=== PATIENT | female | born 1960 ===

== ENCOUNTER 2016-07-23 11:24 | Inpatient (IN) | payer MEDICARE, BC, MEDICAID ==
[2016-07-23 11:24] VITALS: BMI 23.8
[2016-07-23 14:05] LABS: BASO # 0.1 K/uL (0.0-0.2); BASO % 0.9 % (0.0-2.0); EOS # 0.2 K/uL (0.0-0.7); HEMATOCRIT 43.6 % (34.0-47.0); LYMPH # 2.1 K/uL (1.0-4.3); LYMPH % 17.9 % (20.0-40.0); MEAN CELL VOLUME 96.2 fL (81.0-99.0); MEAN CORPUSCULAR HEMOGLOBIN 30.9 pg (27.0-31.0); MEAN CORPUSCULAR HGB CONC 32.1 g/dL (33.0-37.0); MEAN PLATELET VOLUME 9.9 fL (7.2-11.7); MONO # 0.7 K/uL (0.0-0.8); MONO % 6.1 % (0.0-10.0); NRBC % 0.2 % (0.0-2.0); RED CELL DISTRIBUTION WIDTH 18.4 % (11.5-14.5); WHITE BLOOD COUNT 11.5 K/uL (4.8-10.8)
[2016-07-23 14:12] LABS: POTASSIUM 3.3 mmol/L (3.6-5.2)
[2016-07-23 14:14] LABS: ALB/GLOB RATIO 1.2 (1.0-2.1); BILIRUBIN,TOTAL 0.7 mg/dL (0.2-1.3); CALCIUM 9.1 mg/dl (8.6-10.4); TOTAL PROTEIN 7.9 g/dL (6.3-8.3)
--- NOTE | 2016-07-23 14:37 | C.PDOC ---
Time Seen by Provider: 07/23/16 12:19 Chief Complaint (Nursing): GI Problem History Per: Family () History/Exam Limitations: clinical condition, other (unable to speak) Onset/Duration Of Symptoms: Days Current Symptoms Are (Timing): Still Present Recent travel outside of the [place]: No Past Medical History Reviewed: Historical Data, Nursing Documentation, Vital Signs Vital Signs: Last Vital Signs Temp 98.4 F 07/23/16 11:41 Pulse 88 07/23/16 14:55 Resp 18 07/23/16 14:55 BP 151/90 H 07/23/16 14:55 Pulse Ox 78 L 07/23/16 16:52 - Medical History PMH: Anemia, Anxiety, Arthritis, Asthma, Back Problems, Bronchitis, COPD, CVA, Depression, Deep Vein Thrombosis, Gall Bladder Disease, HTN, Hypercholesterolemia, End Stage Renal Disease, Chronic Kidney Disease, Seizures , TIA Surgical History: Appendectomy, Back Surgery (Repair of herniated disc), Cholecystectomy, Endoscopy - [facility] Procedures AMPUTATION THROUGH FOOT (03/01/13) ANGIOPLASTY OF OTHER NON-CORONARY VESSEL(S) (03/01/13) BONE MARROW BIOPSY (05/08/13) CENTRAL VENOUS CATHETER PLACEMENT WITH GUIDANCE (03/01/13) CLOSED [ENDOSCOPIC] BIOPSY OF LARYNX (06/08/13) CONTINUOUS INVASIVE MECHANICAL VENTILATION =/>96 CONSEC HRS (03/01/13) ENTERAL INFUSION OF CONCENTRATED NUT. SUBSTANCES (07/17/13) ESOPHAGOGASTRODUODENOSCOPY [EGD] W/CLOSED BIOPSY (05/08/13) EXC LES SOFT TISSUE NEC (02/27/14) EXCIS LESION OF MUSCLE (02/27/14) FREE SKIN GRAFT NEC (02/27/14) HEMODIALYSIS (03/01/13) INFUSION OF VASOPRESSOR AGENT (03/01/13) INSERT ENDOTRACHEAL TUBE (03/01/13) INSERT INFUSION DEV IN R INT JUGULAR VEIN, PERC (01/29/15) INSERT RECTAL TUBE (03/01/13) INTRODUCE OF OTH THROMBOLYTIC INTO PERIPH ART, PERC APPROACH (11/08/15) LOWER LIMB ARTERY INCIS (03/01/13) NAIL REMOVAL (09/06/14) NONEXCIS DEBRID OF WOUND, INFECT, OR BURN (02/27/14) OTHER ENDOSCOPY OF SM INTEST (09/04/13) OTHER MYECTOMY (02/27/14) PACKED CELL TRANSFUSION (06/08/13) PARENTERAL INFUSION OF CONCENTRATED NUT. SUBSTANCE (03/01/13) PERCUTANEOUS [ENDOSCOPIC] GASTROSTOMY [PEG] (03/01/13) PERFORMANCE OF URINARY FILTRATION, MULTIPLE (01/29/15) PERFORMANCE OF URINARY FILTRATION, SINGLE (04/02/16) PLAIN RADIOGRAPHY OF DIALYSIS SHUNT USING L OSM CONTRAST (11/08/15) PROCEDURE ON SINGLE VESSEL (03/01/13) REMOV GASTROSTOMY TUBE (09/04/13) REMOV THOR THER DEV NEC (03/01/13) TETANUS TOXOID ADMINIST (09/06/14) ULTRASONOGRAPHY OF RIGHT JUGULAR VEINS, GUIDANCE (01/29/15) ULTRASOUND THERAPY OF PERIPHERAL VESSELS, SINGLE (11/08/15) VENOUS CATHETERIZATION FOR RENAL DIALYSIS (03/01/13) VENOUS CATHETERIZATION NEC (03/01/13) Family History: States: Unknown Family Hx - Social History Hx Tobacco Use: Yes Hx Alcohol Use: No Hx Substance Use: No - Immunization History Hx Tetanus Toxoid Vaccination: Yes Hx Influenza Vaccination: Yes Hx Pneumococcal Vaccination: Yes Review Of Systems Review Of Systems: ROS cannot be obtained secondary to pt's inabilty to answer questions. ED Course And Treatment - Laboratory Results Result Diagrams: 07/23/16 13:56 07/23/16 13:56 O2 Sat by Pulse Oximetry: 78
--- NOTE | 2016-07-23 15:28 | CT ---
PROCEDURE: CT HEAD WITHOUT CONTRAST. HISTORY: hallucinations COMPARISON: None available. TECHNIQUE: Axial computed tomography images were obtained through the head/brain without intravenous contrast. Radiation dose: Total exam DLP = 593.42 mGy-cm. This CT exam was performed using one or more of the following dose reduction techniques: Automated exposure control, adjustment of the mA and/or kV according to patient size, and/or use of iterative reconstruction technique. FINDINGS: HEMORRHAGE: No intracranial hemorrhage. BRAIN: Left frontotemporoparietal encephalomalacia unchanged from prior examination. Possible old infarct in the MCA territory. No evidence of acute infarct. No significant atrophy. No intracranial mass. VENTRICLES: Ex vacuo dilatation of body of left lateral ventricle secondary to left frontotemporoparietal encephalomalacia. Unchanged. CALVARIUM: Unremarkable. PARANASAL SINUSES: Chronic sphenoid sinusitis MASTOID AIR CELLS: , unchanged. OTHER FINDINGS: None. IMPRESSION: No intracranial mass, hemorrhage or evidence of acute infarct. 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
[2016-07-23 16:37] LABS: RBC URINE 2 /hpf (0-3); URINE BACTERIA MOD (<OCC); URINE BILIRUBIN NEGATIVE (NEGATIVE); URINE BLOOD 1+ (NEGATIVE); URINE COLOR Yellow (YELLOW); URINE GLUCOSE (UA) NORMAL (Normal); URINE KETONE TRACE mg/dL (NEGATIVE); URINE LEUKOCYTE ESTERASE 3+ Leu/uL (Negative); URINE PROTEIN 2+ mg/dL (NEGATIVE); URINE UROBILINOGEN NORMAL mg/dL (0.2-1.0); WBC URINE 2031 /hpf (0-5)
--- NOTE | 2016-07-23 16:52 | C.PDOC ---
History Of Present Illness 56 year old female with past medical history of end stage renal disease, s/p CVA who is unable to speak presents to emergency department brought by who states patient has not been eating for the past week. The states patient takes percocets daily for multiple pain but has ran out and is not eligible for refill until 08/05/16. reports patient has been hallucinating and having conversations on her own. Patient is due for dialysis today but wants evaluation done prior to dialysis. Denies fever, chills , chest pain and SOB. Time Seen by Provider: 07/23/16 12:19 Chief Complaint (Nursing): GI Problem History/Exam Limitations: clinical condition (unable to speak) Onset/Duration Of Symptoms: Days Current Symptoms Are (Timing): Still Present Past Medical History Reviewed: Historical Data, Nursing Documentation, Vital Signs Vital Signs: Last Vital Signs Temp 98.4 F 07/23/16 11:41 Pulse 94 H 07/23/16 17:41 Resp 1 L 07/23/16 17:41 BP 145/88 07/23/16 17:41 Pulse Ox 78 L 07/23/16 18:25 - Medical History PMH: Anemia, Anxiety, Arthritis, Asthma, Back Problems, Bronchitis, COPD, CVA, Depression, Deep Vein Thrombosis, Gall Bladder Disease, HTN, Hypercholesterolemia, End Stage Renal Disease, Chronic Kidney Disease, Seizures , TIA Surgical History: Appendectomy, Back Surgery (Repair of herniated disc), Cholecystectomy, Endoscopy - [facility] Procedures AMPUTATION THROUGH FOOT (03/01/13) ANGIOPLASTY OF OTHER NON-CORONARY VESSEL(S) (03/01/13) BONE MARROW BIOPSY (05/08/13) CENTRAL VENOUS CATHETER PLACEMENT WITH GUIDANCE (03/01/13) CLOSED [ENDOSCOPIC] BIOPSY OF LARYNX (06/08/13) CONTINUOUS INVASIVE MECHANICAL VENTILATION =/>96 CONSEC HRS (03/01/13) ENTERAL INFUSION OF CONCENTRATED NUT. SUBSTANCES (07/17/13) ESOPHAGOGASTRODUODENOSCOPY [EGD] W/CLOSED BIOPSY (05/08/13) EXC LES SOFT TISSUE NEC (02/27/14) EXCIS LESION OF MUSCLE (02/27/14) FREE SKIN GRAFT NEC (02/27/14) HEMODIALYSIS (03/01/13) INFUSION OF VASOPRESSOR AGENT (03/01/13) INSERT ENDOTRACHEAL TUBE (03/01/13) INSERT INFUSION DEV IN R INT JUGULAR VEIN, PERC (01/29/15) INSERT RECTAL TUBE (03/01/13) INTRODUCE OF OTH THROMBOLYTIC INTO PERIPH ART, PERC APPROACH (11/08/15) LOWER LIMB ARTERY INCIS (03/01/13) NAIL REMOVAL (09/06/14) NONEXCIS DEBRID OF WOUND, INFECT, OR BURN (02/27/14) OTHER ENDOSCOPY OF SM INTEST (09/04/13) OTHER MYECTOMY (02/27/14) PACKED CELL TRANSFUSION (06/08/13) PARENTERAL INFUSION OF CONCENTRATED NUT. SUBSTANCE (03/01/13) PERCUTANEOUS [ENDOSCOPIC] GASTROSTOMY [PEG] (03/01/13) PERFORMANCE OF URINARY FILTRATION, MULTIPLE (01/29/15) PERFORMANCE OF URINARY FILTRATION, SINGLE (04/02/16) PLAIN RADIOGRAPHY OF DIALYSIS SHUNT USING L OSM CONTRAST (11/08/15) PROCEDURE ON SINGLE VESSEL (03/01/13) REMOV GASTROSTOMY TUBE (09/04/13) REMOV THOR THER DEV NEC (03/01/13) TETANUS TOXOID ADMINIST (09/06/14) ULTRASONOGRAPHY OF RIGHT JUGULAR VEINS, GUIDANCE (01/29/15) ULTRASOUND THERAPY OF PERIPHERAL VESSELS, SINGLE (11/08/15) VENOUS CATHETERIZATION FOR RENAL DIALYSIS (03/01/13) VENOUS CATHETERIZATION NEC (03/01/13) Family History: States: Unknown Family Hx - Social History Hx Tobacco Use: Yes Hx Alcohol Use: No Hx Substance Use: No - Immunization History Hx Tetanus Toxoid Vaccination: Yes Hx Influenza Vaccination: Yes Hx Pneumococcal Vaccination: Yes Review Of Systems Review Of Systems: ROS cannot be obtained secondary to pt's inabilty to answer questions. Physical Exam - Physical Exam Appears: Non-toxic, No Acute Distress Skin: Normal Color, Warm, Dry Head: Atraumatic, Normacephalic Chest: Symmetrical, No Tenderness Cardiovascular: Rhythm Regular Respiratory: Normal Breath Sounds, No Rales, No Rhonchi, No Wheezing Gastrointestinal/Abdominal: Normal Exam, Soft, No Tenderness, No Guarding, No Rebound Extremity: Normal ROM, Capillary Refill (< 2 seconds) Neurological/Psych: Other (response to commands, right upper extremity weakness , left upper extremity neurologically intact) ED Course And Treatment - Laboratory Results Result Diagrams: 07/23/16 13:56 07/23/16 13:56 O2 Sat by Pulse Oximetry: 78 - CT Scan/US CT HEAD Other Rad Studies (CT/US): Read By Radiologist (Reno Stone MD), Radiology Report Reviewed CT/US Interpretation: FINDINGS: HEMORRHAGE: No intracranial hemorrhage. BRAIN : Left frontotemporoparietal encephalomalacia unchanged from prior examination. Possible old infarct in the MCA territory. No evidence of acute infarct. No significant atrophy. No intracranial mass. VENTRICLES: Ex vacuo dilatation of body of left lateral ventricle secondary to left frontotemporoparietal encephalomalacia. Unchanged. CALVARIUM: Unremarkable. PARANASAL SINUSES: Chronic sphenoid sinusitis. MASTOID AIR CELLS: , unchanged. OTHER FINDINGS: None. IMPRESSION: No intracranial mass, hemorrhage or evidence of acute infarct. 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 Medical Decision Making Medical Decision Making: Plan: * Head CT * labs * reassess Prior Visits: Notes and results from previous visits were reviewed Progress Notes: discussed with Dr Valencia; will admit pt for hd and uti for iv antibiotics to his service. noted on vs several pulse oxygen saturations of 78; one at 1702 documented in my name. i did not document this. Disposition Discussed With .: Yue Valencia Doctor Will See Patient In The: Hospital - Disposition Disposition: HOSPITALIZED Disposition Time: 18:23 Condition: STABLE - Clinical Impression Clinical Impression: Urinary tract infection, Renal failure as complication of care, ESRD (end stage renal disease) on dialysis - Scribe Statement The provider has reviewed the documentation as recorded by the Baron Singh All medical record entries made by the Baron were at my direction and personally dictated by me. I have reviewed the chart and agree that the record accurately reflects my personal performance of the history, physical exam, medical decision making, and the department course for this patient. I have also personally directed, reviewed, and agree with the discharge instructions and disposition. Decision To Admit - Pt Status Changed To: Hospital Disposition Of: Inpatient - Admit Certification Admit to Inpatient:: After my assessment, the patient will require hospitalization for at least two midnights. This is because of the severity of symptoms shown, intensity of services needed, and/or the medical risk in this patient being treated as an outpatient. - InPatient: Physician Admission Certification: I certify that this patient requires 2 or more midnights of care for the following reason:: for antiboitics and hd - . Bed Request Type: Regular Patient Diagnosis: Urinary tract infection, Renal failure as complication of care, ESRD (end stage renal disease) on dialysis
[2016-07-23] MEDS ORDERED: cefTRIAXone IV 1 gm in Dextros 50 ML IVPB ONE (18:38)
[2016-07-23] MEDS ORDERED: cefTRIAXone IV 1 gm in Dextros 50 ML IVPB STA (19:02)
--- NOTE | 2016-07-23 23:26 | CP.PCM.HP ---
History of Present Illness - History of Present Illness History of Present Illness: Chief complaint: Altered mental status History present illness: 56-year-old female with a history of multiple medical problems, including hypertension, noncompliance ,smoker, multiple pain medication use, history of CVA, PVD, nonhealing ulcer in the legs, multiple hospitalization in the past, came to the emergency room with the worsening altered mental status. According to the family she got hemodialysis on Tuesday this week, following that the patient was doing okay, but 3 days ago she took a lot of medications, which includes the pain medications as well as Xanax. Since then patient was becoming more drowsy, she was hallucinating, confused, was not eating according to the family members. Symptoms gradually got worse, today the family brought her to the emergency room. In the emergency room patient was having some tremor like sensation, but she responds to very simple commands. She is moving all 4 extremities. Patient in the emergency room was evaluated by the ED, and had a CAT scan of the head. She did not have any fever, no chills, no abdominal pain, but patient is somewhat noncompliant Present on Admission - Present on Admission Any Indicators Present on Admission: No History of DVT/PE: No History of Uncontrolled Diabetes: No Urinary Catheter: No Decubitus Ulcer Present: No Review of Systems - Review of Systems All systems: reviewed and no additional remarkable complaints except Review of Systems: Patient is currently having somewhat incoherently, she is opening eyes with the deep stimuli. She understands the pain, localizes the pain. Simple questions she is answering inappropriately. Moving all 4 limbs. According to the family she was not eating well. Past Patient History - Infectious Disease Hx of Infectious Diseases: None - Tetanus Immunizations Tetanus Immunization: Up to Date - Past Medical History & Family History Past Medical History?: Yes - Past Social History Smoking Status: Heavy Smoker > 10 Cigarettes Daily - CARDIAC Hx Cardia Arrhythmia: Yes Hx Circulatory Problems: Yes Hx Congestive Heart Failure: No Hx Hypercholesterolemia: Yes Hx Hypertension: Yes Hx Peripheral Edema: Yes - PULMONARY Hx Asthma: Yes Hx Bronchitis: Yes Hx Chronic Obstructive Pulmonary Disease (COPD): Yes - NEUROLOGICAL HX Cerebrovascular Accident: Yes Hx Seizures: Yes Hx Transient Ischemic Attacks (TIA): Yes - HEENT Hx HEENT Problems: Yes Other/Comment: reading glass, non-verbal - RENAL Hx Chronic Kidney Disease: Yes Hx Dialysis: Yes Date of Last Dialysis Treatment: 07/19/16 - ENDOCRINE/METABOLIC Hx Endocrine Disorders: No - HEMATOLOGICAL/ONCOLOGICAL Hx Anemia: Yes - INTEGUMENTARY Other/Comment: old scar rt. calf. Hx calf surgery due to infection, 2012, Rt. calf smaller. - MUSCULOSKELETAL/RHEUMATOLOGICAL Hx Degenerative Joint Disease: Yes Hx Falls: Yes - GASTROINTESTINAL Hx Gall Bladder Disease: Yes - GENITOURINARY/GYNECOLOGICAL Hx Genitourinary Disorders: Yes Hx Incontinence: Yes - PSYCHIATRIC Hx Anxiety: Yes Hx Depression: Yes Hx Hallucinations: Yes Hx Panic Symptoms: Yes Hx Substance Use: No - SURGICAL HISTORY Hx Amputation: Yes Hx Appendectomy: Yes Hx Cholecystectomy: Yes - ANESTHESIA Hx Anesthesia: Yes Hx Anesthesia Reactions: No Hx Malignant Hyperthermia: No Meds Allergies/Adverse Reactions: Allergies Allergy/AdvReac Type Severity Reaction Status Date / Time banana Allergy Severe ANAPHYLAXIS Verified 07/23/16 11:40 peanut Allergy Severe ANAPHYLAXIS Verified 07/23/16 11:40 Physical Exam - Constitutional Appears: Well Additional comments: Patient is somewhat disoriented at this time. Responding to simple commands. Opening her eyes with the deep stimuli. Patient is able to localize the pain. She's not in any distress at this time, except patient is talking herself, and she is also seeing things and hallucination noted. On examination: Vital signs reviewed Chest good air entry bilaterally regular heart sound nontender abdomen edema negative Results - Vital Signs Recent Vital Signs: Last Vital Signs Temp 98.3 F 07/23/16 21:02 Pulse 96 H 07/23/16 23:06 Resp 15 07/23/16 23:06 BP 118/62 07/23/16 23:06 Pulse Ox 99 07/23/16 23:06 - Labs Result Diagrams: 07/23/16 13:56 07/23/16 13:56 Assessment & Plan (1) Altered mental status Assessment and Plan: Patient is currently having altered mental status, CAT scan of the head is negative. Underlying drug-related delirium cannot be ruled out. Patient did not have any dialysis today, toxin induced to metabolic encephalopathy most likely. Will closely monitor the respiratory status, will get the hemodialysis first thing in the morning, nephrology evaluation, you neurology evaluation. We'll keep her nothing by mouth. IV hydration gently. And will follow the patient Status: Acute (2) UTI (urinary tract infection) Status: Acute (3) ESRD (end stage renal disease) Status: Acute
[2016-07-24] MEDS ORDERED: Sodium Chloride 0.9% 1,000 ML IV SCH (00:15)
[2016-07-24] MEDS ORDERED: Dextrose 5%/0.45% NS 1,000 ML IV SCH (01:30)
[2016-07-24 06:42] LABS: HEMATOCRIT 42.4 % (34.0-47.0); MEAN CELL VOLUME 96.8 fL (81.0-99.0); MEAN CORPUSCULAR HEMOGLOBIN 30.9 pg (27.0-31.0); MEAN CORPUSCULAR HGB CONC 31.9 g/dL (33.0-37.0); MEAN PLATELET VOLUME 9.7 fL (7.2-11.7); RED CELL DISTRIBUTION WIDTH 18.4 % (11.5-14.5); WHITE BLOOD COUNT 11.2 K/uL (4.8-10.8)
[2016-07-24 06:52] LABS: CHLORIDE 104 mmol/L (98-107); POTASSIUM 4.3 mmol/L (3.6-5.2); SODIUM 147 mmol/L (132-148)
[2016-07-24 06:54] LABS: GFR AFRICAN-AMERICAN 20
[2016-07-24 06:55] LABS: ALB/GLOB RATIO 1.1 (1.0-2.1); ALKALINE PHOSPHATASE 93 U/L (38-126); ALT/SGPT 12 U/L (9-52); AST/SGOT 31 U/L (14-36); BILIRUBIN,TOTAL 1.1 mg/dL (0.2-1.3); BLOOD UREA NITROGEN 50 mg/dL (7-17); CALCIUM 9.3 mg/dl (8.6-10.4); CARBON DIOXIDE 17 mmol/L (22-30); GLUCOSE,RANDOM 85 mg/dL (65-105); TOTAL PROTEIN 7.6 g/dL (6.3-8.3)
--- NOTE | 2016-07-24 10:03 | CP.PCM.CON ---
History of Present Illness - History of Present Illness History of Present Illness: History present illness: 56-year-old female with a history of multiple medical problems, including hypertension, noncompliance ,smoker, multiple pain medication use, history of CVA, PVD, nonhealing ulcer in the legs, multiple hospitalization in the past, came to the emergency room with the worsening altered mental status. According to the family she got hemodialysis on Tuesday this week, following that the patient was doing okay, but 3 days ago she took a lot of medications, which includes the pain medications as well as Xanax. Since then patient was becoming more drowsy, she was hallucinating, confused, was not eating according to the family members. Symptoms gradually got worse, today the family brought her to the emergency room. In the emergency room patient was having some tremor like sensation, but she responds to very simple commands. She is moving all 4 extremities. Patient in the emergency room was evaluated by the ED, and had a CAT scan of the head. She did not have any fever, no chills, no abdominal pain, but patient is somewhat noncompliant PMH: HTN CHRONIC GN PAIN MED DEPENDENCE S/P CVA PVD PSH: AV FISTULA RIGHT TMA RIGHT LE DEBRIDEMENT CONSULT DICTATED WILL ARRANGE DIALYSIS Past Patient History - Infectious Disease Hx of Infectious Diseases: None - Tetanus Immunizations Tetanus Immunization: Up to Date - Past Medical History & Family History Past Medical History?: Yes - Past Social History Smoking Status: Heavy Smoker > 10 Cigarettes Daily - CARDIAC Hx Cardia Arrhythmia: Yes Hx Circulatory Problems: Yes Hx Congestive Heart Failure: No Hx Hypercholesterolemia: Yes Hx Hypertension: Yes Hx Peripheral Edema: Yes - PULMONARY Hx Asthma: Yes Hx Bronchitis: Yes Hx Chronic Obstructive Pulmonary Disease (COPD): Yes - NEUROLOGICAL HX Cerebrovascular Accident: Yes Hx Seizures: Yes Hx Transient Ischemic Attacks (TIA): Yes - HEENT Hx HEENT Problems: Yes Other/Comment: reading glass, non-verbal - RENAL Hx Chronic Kidney Disease: Yes Hx Dialysis: Yes Date of Last Dialysis Treatment: 07/19/16 - ENDOCRINE/METABOLIC Hx Endocrine Disorders: No - HEMATOLOGICAL/ONCOLOGICAL Hx Anemia: Yes - INTEGUMENTARY Other/Comment: old scar rt. calf. Hx calf surgery due to infection, 2012, Rt. calf smaller. - MUSCULOSKELETAL/RHEUMATOLOGICAL Hx Degenerative Joint Disease: Yes Hx Falls: Yes - GASTROINTESTINAL Hx Gall Bladder Disease: Yes - GENITOURINARY/GYNECOLOGICAL Hx Genitourinary Disorders: Yes Hx Incontinence: Yes - PSYCHIATRIC Hx Anxiety: Yes Hx Depression: Yes Hx Hallucinations: Yes Hx Panic Symptoms: Yes Hx Substance Use: No - SURGICAL HISTORY Hx Amputation: Yes Hx Appendectomy: Yes Hx Cholecystectomy: Yes - ANESTHESIA Hx Anesthesia: Yes Hx Anesthesia Reactions: No Hx Malignant Hyperthermia: No Meds Allergies/Adverse Reactions: Allergies Allergy/AdvReac Type Severity Reaction Status Date / Time banana Allergy Severe ANAPHYLAXIS Verified 07/23/16 11:40 peanut Allergy Severe ANAPHYLAXIS Verified 07/23/16 11:40 - Medications Medications: Current Medications Heparin Sodium (Porcine) (Heparin) 5,000 units SC Q12 [facility] Last Admin: 07/24/16 09:55 Dose: 5,000 units Ceftriaxone Sodium 1 gm/ (Sodium Chloride) 100 mls @ 100 mls/hr IVPB Q12H [facility] Last Admin: 07/24/16 09:55 Dose: 100 mls/hr Dextrose/Sodium Chloride (Dextrose 5%/0.45% Ns 1000 Ml) 1,000 mls @ 40 mls/hr IV .Q24H [facility] Last Admin: 07/24/16 01:30 Dose: 40 mls/hr Results - Vital Signs Recent Vital Signs: Last Vital Signs Temp 99.3 F 07/24/16 08:00 Pulse 82 07/24/16 09:00 Resp 15 07/24/16 09:00 BP 163/78 H 07/24/16 08:03 Pulse Ox 98 07/24/16 09:00 - Labs Result Diagrams: 07/24/16 06:34 07/24/16 06:35 Labs: Laboratory Results - last 24 hr 07/24/16 07/24/16 07/24/16 00:36 05:50 06:34 WBC 11.2 H RBC 4.39 Hgb 13.5 Hct 42.4 MCV 96.8 MCH 30.9 MCHC 31.9 L RDW 18.4 H Plt Count 423 H MPV 9.7 Sodium Potassium Chloride Carbon Dioxide Anion Gap BUN Creatinine Est GFR ( Amer) Est GFR (Non-Af Amer) POC Glucose (mg/dL) 79 110 Random Glucose Calcium Total Bilirubin AST ALT Alkaline Phosphatase Ammonia Total Creatine Kinase CK-MB (Mass) Troponin I, Quant Total Protein Albumin Globulin Albumin/Globulin Ratio Prolactin 07/24/16 06:35 WBC RBC Hgb Hct MCV MCH MCHC RDW Plt Count MPV Sodium 147 Potassium 4.3 Chloride 104 Carbon Dioxide 17 L Anion Gap 30 H BUN 50 H Creatinine 2.9 H Est GFR ( Amer) 20 Est GFR (Non-Af Amer) 17 POC Glucose (mg/dL) Random Glucose 85 Calcium 9.3 Total Bilirubin 1.1 AST 31 ALT 12 Alkaline Phosphatase 93 Ammonia < 9 L Total Creatine Kinase 53 CK-MB (Mass) 0.41 Troponin I, Quant < 0.0120 Total Protein 7.6 Albumin 4.0 Globulin 3.6 Albumin/Globulin Ratio 1.1 Prolactin 9.9
--- NOTE | 2016-07-24 10:09 | RAD ---
HISTORY: Pneumonia COMPARISON: 04/01/2016 FINDINGS: LUNGS: No active pulmonary disease. PLEURA: No significant pleural effusion identified, no pneumothorax apparent. CARDIOVASCULAR: Normal. OSSEOUS STRUCTURES: No significant abnormalities. VISUALIZED UPPER ABDOMEN: Normal. OTHER FINDINGS: None. IMPRESSION: No active disease.
--- NOTE | 2016-07-24 10:56 | CON ---
DATE: 07/24/2016 The patient is a 56-year-old woman with a past medical history of end-stage renal disease, p resented with overdose of pain medications. Apparently, she took maybe up to 20 Percocet tablets, ac cording to her , and was altered, she was hallucinating, not eating, and was nauseated and bashir arently vomiting as well, and came to the Emergency Department with altered mental status. The patie nt does have a history of pain med dependence and had access to pain medications, and she is being ad mitted for observation of altered mental status and opioid overdose. PAST MEDICAL HISTORY: Hypertension, chronic glomerular nephritis, pain medication dependence, depres cathy, status post CVA, and a history of peripheral vascular disease. PAST SURGICAL HISTORY: AV fistula placement in the left upper arm, right TMA, right lower extremity debridement. SOCIAL HISTORY: Positive for smoking. She is still a positive smoker. History of illicit drug use, mostly pain medications. No history of alcohol abuse. FAMILY HISTORY: Significant for sister who has chronic glomerulonephritis due to diabetes mellitus. REVIEW OF SYSTEMS: Significant for the confusion, altered mental status. She is chronically short o f breath. She has no new rashes. No chest pain. She has no nausea, vomiting, diarrhea. Has not be en eating well, hardly eating recently. She has no hearing deficits or visual disturbances. MEDICATIONS AT HOME: PhosLo and vitamins. Now in the hospital she is getting Rocephin for possible urinary tract infection. Results of urinary tract infection are pending. On physical exam, she is a well-developed, awake, arousable female in no acute distress, let hargic. Blood pressure 163/78, temperature 99.3, pulse was 82. She is anicteric. MOUTH: Clear. No JVD. LUNG PURVIS: Clear. HEART: Regular rhythm, no murmur. ABDOMEN: Soft, benign. No mass or organomegaly. Both legs were in boots and could not be fully evaluated, but there was no peripheral edema. NEUROLOGIC: No focal deficits. LEFT UPPER EXTREMITY: She had an AV fistula in place. LABORATORIES: Showed a white count of 11.2, hemoglobin 13.5, potassium 4.3, BUN 50, creatinine 2.9. Urine has 2+ protein, 3+ leukocytes, many WBCs, and the urine screen positive for benzodiazepines. IMPRESSION: Substance abuse, altered mental status, end-stage renal disease, history of hypertension , status post cerebrovascular accident, and history of chronic glomerulonephritis. She is dialysis d ependent as well. PLAN: Will be for dialysis today, and she is getting mild IV hydration because of the overdose, and she is being observed for overdose of medications. Will follow up. Jamar Calderon MD cc: [id number] TT: 07/24/2016 10:55:35 Confirmation # [id number] Dictation # [id number]
[2016-07-24] MEDS ORDERED: Multivitamin (MVI) 10 ML, Thiamine 100 MG, Folic Acid 1 MG in Sodium Chloride 0.9% 1,00... IV ONE (11:00)
[2016-07-24] MEDS: Multivitamin Vitamin B Complex (Nephro-Vite) Tab PO SCH (13:25)
--- NOTE | 2016-07-24 14:01 | CP.CCUPN ---
CCU Subjective - Physician Review Events Since Last Encounter (Free Text): 07/24/16 14:01 patient seen and examined in the morning. As per her MS is pretty much as her baseline this morning, but he claims that she still is hallucinating. I am not able to tell since she is aphasic and I can not comprehend her speech. Getting dialysis now, protecting her airway. Drug test positive for benzodiazepines, ordered small dose of xanax daily to avoid withdrawal. wbc count slightly increased, urine culture with gram negative rods, switched ceftriaxone for zosyn. poke to and updated. As per poor appetite and he would like her to get MVT. BP not controlled, start BP meds. CCU Objective - Vital Signs / Intake & Output Vital Signs (Last 4 hours): Vital Signs Temp Pulse Resp BP Pulse Ox 07/24/16 12:26 83 14 133/63 07/24/16 12:04 81 18 97 07/24/16 12:00 99.1 F 80 19 99 07/24/16 11:00 81 18 99 07/24/16 10:04 88 15 175/73 H 97 Intake and Output (Last 8hrs): Intake & Output 07/23/16 07/24/16 07/24/16 22:59 06:59 14:59 Intake Total 0 320 440 Output Total 0 0 0 Balance 0 320 440 Weight 92 lb 9.506 oz Intake: Intake, IV Amount 320 290 Right Hand 320 290 Oral 0 0 150 Output: Urine 0 0 0 Urine, Voided 0 0 0 Other: Voiding Method Bedpan - Medications Active Medications: Active Medications Generic Name Dose Route Start Last Admin Trade Name Xena PRN Reason Stop Dose Admin Alprazolam 0.25 mg 07/24/16 22:00 Xanax PO 07/31/16 22:01 HS CHRISTIANO Amlodipine Besylate 10 mg 07/24/16 10:30 07/24/16 13:17 Norvasc PO Not Given DAILY [facility] Clonidine HCl 1 patch 07/24/16 11:00 Catapres Tts1 0.1 Mg/24 Hr TD Q7D@1000 CHRISTIANO Famotidine 20 mg 07/25/16 10:00 Pepcid PO DAILY CHRISTIANO Heparin Sodium (Porcine) 5,000 units 07/24/16 10:00 07/24/16 09:55 Heparin SC 5,000 units Q12 CHRISTIANO Administration Multivitamins/Vitamin C 10 ml/ 1,011.2 mls @ 50 mls/hr 07/24/16 11:00 07/24/16 13:23 Thiamine HCl 100 mg/ Folic IV 07/25/16 07:13 50 mls/hr Acid 1 mg/ Sodium Chloride .[id number] ONE Administration Piperacillin Sod/Tazobactam Sod 50 mls @ 100 mls/hr 07/24/16 14:00 Zosyn 2.25 Gm Iv Premix IVPB Q12H CHRISTIANO Vitamin B Complex/Vit C/Folic Acid 1 tab 07/24/16 10:30 07/24/16 13:25 Nephro-Emerson PO 1 tab DAILY CHRISTIANO Administration - Patient Studies Lab Studies: Microbiology Studies 07/23/16 Unknown Urine Culture - Preliminary Urine,Clean Catch Gram Negative Jake Lab Studies 07/24/16 07/24/16 07/24/16 Range/Units 11:42 06:35 06:34 WBC 11.2 H (4.8-10.8) K/uL RBC 4.39 (3.80-5.20) Mil/uL Hgb 13.5 (11.0-16.0) g/dL Hct 42.4 (34.0-47.0) % MCV 96.8 (81.0-99.0) fL MCH 30.9 (27.0-31.0) pg MCHC 31.9 L (33.0-37.0) g/dL RDW 18.4 H (11.5-14.5) % Plt Count 423 H (130-400) K/uL MPV 9.7 (7.2-11.7) fL Sodium 147 (132-148) mmol/L Potassium 4.3 (3.6-5.2) mmol/L Chloride 104 (98-107) mmol/L Carbon Dioxide 17 L (22-30) mmol/L Anion Gap 30 H (10-20) BUN 50 H (7-17) mg/dL Creatinine 2.9 H (0.7-1.2) MG/DL Est GFR ( Amer) 20 Est GFR (Non-Af Amer) 17 POC Glucose (mg/dL) 86 (65-110) mg/dL Random Glucose 85 (65-105) mg/dL Calcium 9.3 (8.6-10.4) mg/dl Total Bilirubin 1.1 (0.2-1.3) mg/dL AST 31 (14-36) U/L ALT 12 (9-52) U/L Alkaline Phosphatase 93 (38-126) U/L Ammonia < 9 L (9-33) umol/L Total Creatine Kinase 53 (30-135) U/L CK-MB (Mass) 0.41 (0.0-3.38) ng/mL Troponin I, Quant < 0.0120 (0.00-0.120) ng/mL Total Protein 7.6 (6.3-8.3) g/dL Albumin 4.0 (3.5-5.0) g/dL Globulin 3.6 (2.2-3.9) gm/dL Albumin/Globulin Ratio 1.1 (1.0-2.1) Prolactin 9.9 (3.0-18.9) ng/mL 07/24/16 07/24/16 Range/Units 05:50 00:36 WBC (4.8-10.8) K/uL RBC (3.80-5.20) Mil/uL Hgb (11.0-16.0) g/dL Hct (34.0-47.0) % MCV (81.0-99.0) fL MCH (27.0-31.0) pg MCHC (33.0-37.0) g/dL RDW (11.5-14.5) % Plt Count (130-400) K/uL MPV (7.2-11.7) fL Sodium (132-148) mmol/L Potassium (3.6-5.2) mmol/L Chloride (98-107) mmol/L Carbon Dioxide (22-30) mmol/L Anion Gap (10-20) BUN (7-17) mg/dL Creatinine (0.7-1.2) MG/DL Est GFR ( Amer) Est GFR (Non-Af Amer) POC Glucose (mg/dL) 110 79 (65-110) mg/dL Random Glucose (65-105) mg/dL Calcium (8.6-10.4) mg/dl Total Bilirubin (0.2-1.3) mg/dL AST (14-36) U/L ALT (9-52) U/L Alkaline Phosphatase (38-126) U/L Ammonia (9-33) umol/L Total Creatine Kinase (30-135) U/L CK-MB (Mass) (0.0-3.38) ng/mL Troponin I, Quant (0.00-0.120) ng/mL Total Protein (6.3-8.3) g/dL Albumin (3.5-5.0) g/dL Globulin (2.2-3.9) gm/dL Albumin/Globulin Ratio (1.0-2.1) Prolactin (3.0-18.9) ng/mL Laboratory Results - last 24 hr 07/24/16 07/24/16 07/24/16 00:36 05:50 06:34 WBC 11.2 H RBC 4.39 Hgb 13.5 Hct 42.4 MCV 96.8 MCH 30.9 MCHC 31.9 L RDW 18.4 H Plt Count 423 H MPV 9.7 Sodium Potassium Chloride Carbon Dioxide Anion Gap BUN Creatinine Est GFR ( Amer) Est GFR (Non-Af Amer) POC Glucose (mg/dL) 79 110 Random Glucose Calcium Total Bilirubin AST ALT Alkaline Phosphatase Ammonia Total Creatine Kinase CK-MB (Mass) Troponin I, Quant Total Protein Albumin Globulin Albumin/Globulin Ratio Prolactin 07/24/16 07/24/16 06:35 11:42 WBC RBC Hgb Hct MCV MCH MCHC RDW Plt Count MPV Sodium 147 Potassium 4.3 Chloride 104 Carbon Dioxide 17 L Anion Gap 30 H BUN 50 H Creatinine 2.9 H Est GFR ( Amer) 20 Est GFR (Non-Af Amer) 17 POC Glucose (mg/dL) 86 Random Glucose 85 Calcium 9.3 Total Bilirubin 1.1 AST 31 ALT 12 Alkaline Phosphatase 93 Ammonia < 9 L Total Creatine Kinase 53 CK-MB (Mass) 0.41 Troponin I, Quant < 0.0120 Total Protein 7.6 Albumin 4.0 Globulin 3.6 Albumin/Globulin Ratio 1.1 Prolactin 9.9 Fingerstick Blood Sugar Results: 110 Critical Care Progress Note - Nutrition Nutrition: Nutrition Category Date Time Status Liquid Diet [DIET] Diets 07/23/16 Breakfast Active
[2016-07-24] MEDS: Piperacill/Tazo 2.25gm in Dex 50 ML IVPB SCH (16:56)
--- NOTE | 2016-07-24 18:32 | CON ---
DATE: 07/24/2016 REASON FOR CONSULTATION: Change in mental state. HISTORY OF PRESENT ILLNESS: The patient is a 56-year-old lady with past medical history of hypertension, on multiple medications, history of CVA, peripheral vascular disease, nonhealing ulcers in the legs, multiple hospitalizations, noncompliant with the medications, smoker. The patient was admitted because of worsening mental state for the last 3 days and the patient used overdose of medications and painkillers including Xanax. The patient was becoming more drowsy and patient was hallucinating, confused and disoriented and , as per family, symptoms gradually got worse and they brought the patient to the Emergency Room. In the Emergency Room, the patient was found to have some mild tremors in the Emergency Room and the patient was disoriented, confused and patient was admitted for further evaluation. The patient had dialysis on Tuesday. The patient had no fever or chills. PAST MEDICAL HISTORY: As mentioned above. SOCIAL HISTORY: The patient is a smoker, nondrug or ethanol abuser. MEDICATIONS: Clonidine, heparin subcutaneously, multivitamins, amlodipine, famotidine, ____, piperacillin, ceftriaxone discontinued. VITAL SIGNS: Blood pressure 118/62, pulse 96, respirations 15, temperature 98.3. REVIEW OF SYSTEMS: As per H and P. ER notes reviewed. LABORATORY DATA: White count 11.5, hemoglobin 14, hematocrit 43, platelets 392. Sodium 143, potassium 3.3, chloride 105, CO2 15, BUN 44, creatinine 3.4. MENTAL STATUS: The patient is awake, alert, makes good eye contact, Follows 1 step commands, disoriented to place, time and person, not cooperative with exam , screaming during the examination. MOTOR: The patient is moving all her upper and lower extremities spontaneously and in response to noxious stimuli symmetrically. No asymmetry of movement of the extremities. Deep tendon reflexes 1 in upper extremities, absent at the knees and ankles. Plantars flexion both sides. Unfortunately I was unable to review the CAT scan; as per report the patient has no old left temporal parietal infarct with encephalomalacia in left middle cerebral artery territory. IMPRESSION: 1. Change in mental state, rule out septic etiology. 2. patients with ESRD can have CMS secondary to Thiamine deficiency. 3. Subclinical seizures because of the temporal lobe involvement with a cerebrovascular accident and metabolic etiology and septic etiology can trigger the seizures. PLAN: I would put the patient empirically on low dose Lamictal until the EEG is done and if the EEG did not reveal epileptogenic focus or electrographic seizures, it can be discontinued, otherwise, can be increased gradually. But at this point, I would just put her on 25 mg b.i.d., in addition to thiamine 200 mg daily with IV fluid. No need for repeat CAT scan because of patient's symptoms started a few days ago, if it was a CVA it would have showed on the CAT scan. Thank you for the consultation and Dr. Orantes will follow up the patient on Tuesday. Emiliano Raza MD cc: [id number] TT: 07/24/2016 18:31:55 Confirmation # [id number] Dictation # [id number] MTDD
--- NOTE | 2016-07-24 23:35 | CP.PCM.PN ---
Subjective - Date & Time of Evaluation Date of Evaluation: 07/24/16 Time of Evaluation: 23:34 - Subjective Subjective: Patient today is less delirious than yesterday. She is following commands. Slightly eating better. Received hemodialysis in the morning. But still confusion noted. Currently receiving intravenous multivitamin. Denies any chest pain or shortness of breath. Objective - Vital Signs/Intake and Output Vital Signs (last 24 hours): Temp Pulse Resp BP Pulse Ox 98.2 F 84 20 135/70 98 07/24/16 20:00 07/24/16 21:18 07/24/16 20:00 07/24/16 20:00 07/24/16 20:00 Intake and Output: 07/24/16 07/25/16 18:59 06:59 Intake Total 540 525 Output Total 0 1 Balance 540 524 - Medications Medications: Current Medications Alprazolam (Xanax) 0.25 mg PO HS [facility] Stop: 07/31/16 22:01 Amlodipine Besylate (Norvasc) 10 mg PO DAILY [facility] Last Admin: 07/24/16 13:17 Dose: Not Given Clonidine HCl (Catapres Tts1 0.1 Mg/24 Hr) 1 patch TD Q7D@1000 [facility] Last Admin: 07/24/16 16:57 Dose: 1 patch Famotidine (Pepcid) 20 mg PO DAILY [facility] Heparin Sodium (Porcine) (Heparin) 5,000 units SC Q12 [facility] Last Admin: 07/24/16 22:26 Dose: 5,000 units Multivitamins/Vitamin C 10 ml/Thiamine HCl 100 mg/ Folic Acid 1 mg/ Sodium Chloride 1,011.2 mls @ 50 mls/hr IV .[id number] ONE Stop: 07/25/16 07:13 Last Admin: 07/24/16 13:23 Dose: 50 mls/hr Piperacillin Sod/Tazobactam Sod (Zosyn 2.25 Gm Iv Premix) 50 mls @ 100 mls/hr IVPB Q12H [facility] Last Admin: 07/24/16 16:56 Dose: 100 mls/hr Vitamin B Complex/Vit C/Folic Acid (Nephro-Emerson) 1 tab PO DAILY [facility] Last Admin: 07/24/16 13:25 Dose: 1 tab - Labs Labs: 07/24/16 06:34 07/24/16 06:35 - Head Exam Additional comments: Clinically patient is stable. Chest good air entry bilaterally regular heart sound nontender abdomen extremities 1+ edema noted. Labs reviewed Discussed with the patient's family. Continue the current treatment and will follow the patient Assessment and Plan (1) Altered mental status Assessment & Plan: Most likely related to drug overdose as well as not receiving hemodialysis. Urinemia possible. Continue the current treatment Status: Acute (2) UTI (urinary tract infection) Assessment & Plan: Patient is currently an antibiotic of Zosyn. Continue the antibiotic. We'll start the patient on prophylaxis for C. difficile colitis Status: Acute (3) ESRD (end stage renal disease) Assessment & Plan: End-stage renal disease on dialysis Status: Acute
[2016-07-25] MEDS: Piperacill/Tazo 2.25gm in Dex 50 ML IVPB SCH ×2 (02:50→13:40)
[2016-07-25 07:03] LABS: HEMATOCRIT 36.6 % (34.0-47.0); MEAN CELL VOLUME 95.2 fL (81.0-99.0); MEAN CORPUSCULAR HEMOGLOBIN 30.9 pg (27.0-31.0); MEAN CORPUSCULAR HGB CONC 32.4 g/dL (33.0-37.0); MEAN PLATELET VOLUME 9.3 fL (7.2-11.7); RED CELL DISTRIBUTION WIDTH 18.1 % (11.5-14.5); WHITE BLOOD COUNT 10.7 K/uL (4.8-10.8)
[2016-07-25 07:13] LABS: BILIRUBIN,TOTAL 0.7 mg/dL (0.2-1.3)
[2016-07-25 07:14] LABS: ALB/GLOB RATIO 1.1 (1.0-2.1); PHOSPHOROUS 3.6 mg/dL (2.5-4.5); TOTAL PROTEIN 6.2 g/dL (6.3-8.3)
[2016-07-25] MEDS: Multivitamin Vitamin B Complex (Nephro-Vite) Tab PO SCH (10:27)
[2016-07-25] MEDS: Potassium Chloride 10 mEq 100 ML IVPB SCH ×2 (10:46→12:18)
[2016-07-25] MEDS ORDERED: Potassium Chloride 10 mEq ER Tab PO ONE (11:58)
--- NOTE | 2016-07-25 16:26 | CARD ---
APPROVED REPORT EXAM: Two-dimensional and M-mode echocardiogram with Doppler and color Doppler. Other Information Quality : Technically LimitedRhythm : NSR INDICATION CVA/TIA Congestive Heart Failure COPD RISK FACTORS Hypertension M-Mode DIMENSIONS RVDd1.55 (2.1-3.2cm)Left Atrium (MM)3.13 (2.5-4.0cm) IVSd0.85 (0.7-1.1cm)Aortic Root2.22 (2.2-3.7cm) LVDd3.58 (4.0-5.6cm)Aortic Cusp Exc.1.34 (1.5-2.0cm) PWd0.91 (0.7-1.1cm)FS (%) 33 % LVDs2.40 (2.0-3.8cm)LVEF (%)63 (>50%) Aortic Valve AoV Peak Bfyseabp700.4cm/Rosamaria Peak GR.8mmHg Mitral Valve MV E Dytffkbq65.5cm/sMV A Rbpqblov56.2cm/sE/A ratio0.7 TDI E/Lateral E'0.0E/Medial E'0.0 Tricuspid Valve TR Peak Tvcqmvnd993ly/sTR Peak Gr.[id number] <Conclusion> poor window. la,lv & ra rv size appears normal. normal lv wall motion,thickness & systolic function with lvef of 60-65%. mitral & tv appears normal. mild tr,trace mr with normal pulmonary systolic pressures of 32 mm of hg. aortic & pv not well seen. no pericardial effusion. clinical correlation is adv.
--- NOTE | 2016-07-25 18:48 | CP.PCM.PN ---
Subjective - Date & Time of Evaluation Date of Evaluation: 07/25/16 Time of Evaluation: 18:48 - Subjective Subjective: Patient is more responding and the eating slightly better. Family was at bedside. Spoke to the family in details about the overall condition. Patient was out of bed to chair. Denies any nausea vomiting. Objective - Vital Signs/Intake and Output Vital Signs (last 24 hours): Temp Pulse Resp BP Pulse Ox 97.9 F 76 15 131/54 L 95 07/25/16 16:00 07/25/16 16:00 07/25/16 12:00 07/25/16 16:00 07/25/16 16:00 Intake and Output: 07/25/16 07/25/16 06:59 18:59 Intake Total 625 220 Output Total 101 0 Balance 524 220 - Medications Medications: Current Medications Alprazolam (Xanax) 0.25 mg PO [facility] Stop: 07/31/16 22:01 Last Admin: 07/25/16 01:10 Dose: 0.25 mg Amlodipine Besylate (Norvasc) 10 mg PO DAILY [facility] Last Admin: 07/25/16 10:27 Dose: Not Given Clonidine HCl (Catapres Tts1 0.1 Mg/24 Hr) 1 patch TD Q7D@1000 [facility] Last Admin: 07/24/16 16:57 Dose: 1 patch Famotidine (Pepcid) 20 mg PO DAILY [facility] Last Admin: 07/25/16 10:28 Dose: Not Given Heparin Sodium (Porcine) (Heparin) 5,000 units SC Q12 [facility] Last Admin: 07/25/16 10:24 Dose: 5,000 units Piperacillin Sod/Tazobactam Sod (Zosyn 2.25 Gm Iv Premix) 50 mls @ 100 mls/hr IVPB Q12H [facility] Last Admin: 07/25/16 13:40 Dose: 100 mls/hr Lamotrigine (Lamictal) 25 mg PO BID [facility] Vitamin B Complex/Vit C/Folic Acid (Nephro-Emerson) 1 tab PO DAILY [facility] Last Admin: 07/25/16 10:27 Dose: Not Given - Labs Labs: 07/25/16 07:00 07/25/16 07:00 - Head Exam Additional comments: Chest good air entry bilaterally regular heart sound. Nontender abdomen. Extended is no pedal edema. Assessment and Plan (1) Altered mental status Assessment & Plan: Altered mental status most likely related to drug overdose. Uremia cannot be ruled out. Currently improving, patient has able to sleep better. Awake and responding and oriented Status: Acute (2) UTI (urinary tract infection) Assessment & Plan: Patient has a urinary tract infection most likely Escherichia coli, on Zosyn Status: Acute (3) ESRD (end stage renal disease) Assessment & Plan: Patient will be receiving dialysis again on Tuesday. On and off patient was refusing the hemodialysis. Patient is mostly noncompliance with her medication treatment as well as having trouble in quit smoking Status: Acute
[2016-07-26] MEDS: Piperacill/Tazo 2.25gm in Dex 50 ML IVPB SCH ×3 (02:39→18:20)
--- NOTE | 2016-07-26 08:50 | PN ---
DATE: 07/26/2016 TIME OF EVALUATION: 8:30 a.m. NEUROLOGICAL PROBLEM: Change in mental status. PHYSICAL EXAMINATION: VITAL SIGNS: Blood pressure 131/54, mean arterial pressure of 79, respiratory rate 16, temperature afebrile. NECK: Supple. No carotid bruit. HEART: Sounds Normal. NEUROLOGIC: The patient is awake, alert, oriented to person and place. His speech is very clear. She follows commands. She moves all 4 extremities against gravity. Deep tendon reflexes are trace. Plantars are downgoing. With the episode of change in mental status and a tremor is not seen at present. However, the patient still needs the workup as requested by Dr. Raza over the weekend. The patient is scheduled to have an MRI of the brain as well as an electroencephalogram. Electroencephalogram is on progress at present. Continue Lamictal which was recommended by Dr. Raza earlier. If all workup is done, probably if it is not needed I will discontinue her Lamictal. Conner Orantes MD cc: [id number] TT: 07/26/2016 08:49:24 Confirmation # [id number] Dictation # [id number] bib EDEN
--- NOTE | 2016-07-26 10:03 | CP.PCM.PN ---
Subjective - Date & Time of Evaluation Date of Evaluation: 07/26/16 Time of Evaluation: 10:01 - Subjective Subjective: Feels better Eating better; still anxious Stable dialysis 07/24 No n, v, SOB, CPs, c/o insomnia Objective - Vital Signs/Intake and Output Vital Signs (last 24 hours): Temp Pulse Resp BP Pulse Ox 98.6 F 76 15 131/54 L 95 07/26/16 00:00 07/25/16 16:00 07/25/16 12:00 07/25/16 16:00 07/25/16 16:00 - Medications Medications: Current Medications Alprazolam (Xanax) 0.25 mg PO [facility] Stop: 07/31/16 22:01 Last Admin: 07/25/16 22:33 Dose: 0.25 mg Amlodipine Besylate (Norvasc) 10 mg PO DAILY [facility] Last Admin: 07/25/16 10:27 Dose: Not Given Clonidine HCl (Catapres Tts1 0.1 Mg/24 Hr) 1 patch TD Q7D@1000 [facility] Last Admin: 07/24/16 16:57 Dose: 1 patch Famotidine (Pepcid) 20 mg PO DAILY [facility] Last Admin: 07/25/16 10:28 Dose: Not Given Heparin Sodium (Porcine) (Heparin) 5,000 units SC Q12 [facility] Last Admin: 07/25/16 22:33 Dose: 5,000 units Piperacillin Sod/Tazobactam Sod (Zosyn 2.25 Gm Iv Premix) 50 mls @ 100 mls/hr IVPB Q12H [facility] Last Admin: 07/26/16 02:39 Dose: 100 mls/hr Lamotrigine (Lamictal) 25 mg PO BID [facility] Last Admin: 07/25/16 18:50 Dose: 25 mg Vitamin B Complex/Vit C/Folic Acid (Nephro-Emerson) 1 tab PO DAILY [facility] Last Admin: 07/25/16 10:27 Dose: Not Given - Labs Labs: 07/25/16 07:00 07/25/16 07:00 - Constitutional Appears: No Acute Distress, Chronically Ill - Head Exam Head Exam: ATRAUMATIC, NORMAL INSPECTION - Eye Exam Eye Exam: EOMI, Normal appearance - Neck Exam Neck Exam: Normal Inspection. absent: Tenderness - Respiratory Exam Respiratory Exam: Clear to Ausculation Bilateral, NORMAL BREATHING PATTERN - Cardiovascular Exam Cardiovascular Exam: REGULAR RHYTHM, +S1 - GI/Abdominal Exam GI & Abdominal Exam: Soft. absent: Tenderness - Extremities Exam Extremities Exam: Normal Inspection. absent: Tenderness - Neurological Exam Neurological Exam: Alert, CN II-XII Intact - Skin Skin Exam: Dry, Warm Assessment and Plan (1) Altered mental status Status: Acute (2) Dependency on pain medication Status: Acute (3) ESRD (end stage renal disease) on dialysis Status: Acute (4) Nephrotic range proteinuria Status: Acute - Assessment and Plan (Free Text) Plan: Will schedule dialysis today to maintain schedule as outpatient Monitor mental status
[2016-07-26] MEDS: Multivitamin Vitamin B Complex (Nephro-Vite) Tab PO SCH (10:08)
[2016-07-26 12:13] LABS: MAGNESIUM 2.2 mg/dL (1.6-2.3)
--- NOTE | 2016-07-26 19:36 | CP.PCM.PN ---
Subjective - Date & Time of Evaluation Date of Evaluation: 07/26/16 Time of Evaluation: 19:35 - Subjective Subjective: Patient is currently more awake and responding. She had hemodialysis today. Diarrhea noted. We'll get the stool for C. difficile Objective - Vital Signs/Intake and Output Vital Signs (last 24 hours): Temp Pulse Resp BP Pulse Ox 98.8 F 73 20 136/67 98 07/26/16 15:42 07/26/16 15:42 07/26/16 15:42 07/26/16 15:42 07/26/16 15:42 - Medications Medications: Current Medications Alprazolam (Xanax) 0.25 mg PO [facility] Stop: 07/31/16 22:01 Last Admin: 07/25/16 22:33 Dose: 0.25 mg Amlodipine Besylate (Norvasc) 10 mg PO DAILY [facility] Last Admin: 07/26/16 10:08 Dose: 10 mg Clonidine HCl (Catapres Tts1 0.1 Mg/24 Hr) 1 patch TD Q7D@1000 [facility] Last Admin: 07/24/16 16:57 Dose: 1 patch Famotidine (Pepcid) 20 mg PO DAILY [facility] Last Admin: 07/26/16 10:08 Dose: 20 mg Heparin Sodium (Porcine) (Heparin) 5,000 units SC Q12 [facility] Last Admin: 07/26/16 10:11 Dose: Not Given Piperacillin Sod/Tazobactam Sod (Zosyn 2.25 Gm Iv Premix) 50 mls @ 100 mls/hr IVPB Q12H [facility] Last Admin: 07/26/16 18:20 Dose: 100 mls/hr Lamotrigine (Lamictal) 25 mg PO BID [facility] Last Admin: 07/26/16 18:11 Dose: 25 mg Vitamin B Complex/Vit C/Folic Acid (Nephro-Emerson) 1 tab PO DAILY [facility] Last Admin: 07/26/16 10:08 Dose: 1 tab - Labs Labs: 07/25/16 07:00 07/25/16 07:00 - Head Exam Additional comments: Chest good air entry bilaterally regular heart sound nontender abdomen. Assessment and Plan (1) Altered mental status Assessment & Plan: Most likely secondary to metabolic encephalopathy. We'll get EKG, EEG, MRI if needed Status: Acute (2) UTI (urinary tract infection) Status: Acute (3) ESRD (end stage renal disease) Status: Acute
[2016-07-27] MEDS: Piperacill/Tazo 2.25gm in Dex 50 ML IVPB SCH ×2 (02:50→13:15)
[2016-07-27] MEDS: Multivitamin Vitamin B Complex (Nephro-Vite) Tab PO SCH (09:55)
[2016-07-27 11:16] LABS: BASO # 0.2 K/uL (0.0-0.2); BASO % 1.4 % (0.0-2.0); EOS # 0.1 K/uL (0.0-0.7); EOS % 0.9 % (0.0-4.0); HEMATOCRIT 36.1 % (34.0-47.0); LYMPH % 15.9 % (20.0-40.0); MEAN CORPUSCULAR HEMOGLOBIN 30.8 pg (27.0-31.0); MEAN CORPUSCULAR HGB CONC 32.1 g/dL (33.0-37.0); MEAN PLATELET VOLUME 10.2 fL (7.2-11.7); MONO # 0.8 K/uL (0.0-0.8); RED CELL DISTRIBUTION WIDTH 17.8 % (11.5-14.5); WHITE BLOOD COUNT 12.7 K/uL (4.8-10.8)
[2016-07-27 11:28] LABS: POTASSIUM 2.8 mmol/L (3.6-5.2)
[2016-07-27 11:30] LABS: ALB/GLOB RATIO 1.2 (1.0-2.1); BILIRUBIN,TOTAL 0.3 mg/dL (0.2-1.3); CALCIUM 8.8 mg/dl (8.6-10.4)
[2016-07-27 11:31] LABS: MAGNESIUM 2.1 mg/dL (1.6-2.3)
--- NOTE | 2016-07-27 11:44 | CP.PCM.PN ---
Subjective - Date & Time of Evaluation Date of Evaluation: 07/27/16 Time of Evaluation: 11:41 - Subjective Subjective: Sleepy now- alert earlier as per c/o diarrhea- c.diff to be ordered Stable dialysis 07/26 Refusing HD in AM- will reschedule 07/29 BP elevated- will increase meds Objective - Vital Signs/Intake and Output Vital Signs (last 24 hours): Temp Pulse Resp BP Pulse Ox 98.5 F 77 20 173/92 H 100 07/27/16 04:50 07/27/16 04:50 07/27/16 04:50 07/27/16 04:50 07/27/16 04:50 Intake and Output: 07/27/16 07/27/16 06:59 18:59 Intake Total 270 Balance 270 - Medications Medications: Current Medications Alprazolam (Xanax) 0.25 mg PO [facility] Stop: 07/31/16 22:01 Last Admin: 07/26/16 22:11 Dose: 0.25 mg Amlodipine Besylate (Norvasc) 10 mg PO DAILY [facility] Last Admin: 07/27/16 09:56 Dose: 10 mg Clonidine HCl (Catapres Tts1 0.1 Mg/24 Hr) 1 patch TD Q7D@1000 [facility] Last Admin: 07/24/16 16:57 Dose: 1 patch Famotidine (Pepcid) 20 mg PO DAILY [facility] Last Admin: 07/27/16 09:57 Dose: 20 mg Piperacillin Sod/Tazobactam Sod (Zosyn 2.25 Gm Iv Premix) 50 mls @ 100 mls/hr IVPB Q12H [facility] Last Admin: 07/27/16 02:50 Dose: 100 mls/hr Lamotrigine (Lamictal) 25 mg PO BID [facility] Last Admin: 07/27/16 09:56 Dose: 25 mg Oxycodone/Acetaminophen (Percocet 5/325 Mg Tab) 1 tab PO Q4H PRN PRN Reason: Pain, moderate (4-7) Stop: 07/29/16 23:12 Vitamin B Complex/Vit C/Folic Acid (Nephro-Emerson) 1 tab PO DAILY [facility] Last Admin: 07/27/16 09:55 Dose: 1 tab - Labs Labs: 07/27/16 11:09 07/27/16 11:09 - Constitutional Appears: No Acute Distress, Chronically Ill - Head Exam Head Exam: ATRAUMATIC, NORMAL INSPECTION - Eye Exam Eye Exam: EOMI, Normal appearance - Neck Exam Neck Exam: Normal Inspection. absent: Tenderness - Respiratory Exam Respiratory Exam: Clear to Ausculation Bilateral, NORMAL BREATHING PATTERN - Cardiovascular Exam Cardiovascular Exam: REGULAR RHYTHM, +S1 - GI/Abdominal Exam GI & Abdominal Exam: Soft. absent: Tenderness - Extremities Exam Extremities Exam: Normal Inspection. absent: Tenderness - Neurological Exam Neurological Exam: Alert, CN II-XII Intact - Skin Skin Exam: Dry, Warm Assessment and Plan (1) Altered mental status Status: Acute (2) Dependency on pain medication Status: Acute (3) ESRD (end stage renal disease) on dialysis Status: Acute (4) Nephrotic range proteinuria Status: Acute - Assessment and Plan (Free Text) Plan: Add ARB Next HD 07/29 check c.diff titre
--- NOTE | 2016-07-27 13:21 | MRI ---
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 FINDINGS: HEMORRHAGE: None DWI: No evidence of an acute or early subacute infarction. BRAIN PARENCHYMA: There is a large left frontal, parietal and temporal lobe cystic encephalomalacia and gliosis with volume loss and ex vacuo dilatation of the left lateral ventricle. There are moderate chronic microangiopathic changes. There is no mass, mass effect or abnormal extra-axial fluid collection. VENTRICLES: There is mild is advanced global parenchymal volume loss and proportionate enlargement of the ventricles and cortical sulci. CRANIUM: There is normal bone marrow signal pattern. ORBITS: Grossly unremarkable. PARANASAL SINUSES/MASTOIDS: There is moderate circumferential mucosal thickening in the sphenoid sinus. The remaining included paranasal sinuses and mastoid air cells are clear. VASCULAR SYSTEM: There are normal signal voids in the larger intracranial arteries. OTHER FINDINGS: None. IMPRESSION: 1. No acute intracranial abnormality. Specifically, no evidence of acute infarction. 2. Large left frontal, parietal and temporal lobe cystic encephalomalacia and gliosis, sequela of remote MCA territory insult. 3. Moderate chronic microangiopathic changes and mild global parenchymal volume loss, advanced for the patient's age.
[2016-07-27] MEDS: Potassium Chloride 20 mEq ER Tab PO SCH ×3 (17:36→18:46)
[2016-07-27] MEDS: Oxycodone/Acetaminophen 5/325 mg Tab PO PRN ×2 (18:46→23:14)
--- NOTE | 2016-07-27 20:01 | CP.PCM.PN ---
Subjective - Date & Time of Evaluation Date of Evaluation: 07/27/16 Time of Evaluation: 19:59 - Subjective Subjective: patient today has no fever, she is more awake and responding, complaining of pain in the right leg. No swelling noted. Blood pressure is elevated, Cozaar started, now the pressure is on the low side. No chest pain. No shortness of breath. Patient is poorly eating. Patient is somewhat depressed, crying at this time. Spoke to the today about the condition, started on pain medications again. Percocet one tablet every 4 hours. Diarrhea better. serum potassium is on the low side, but the patient is refusing to take medication for potassium Objective - Vital Signs/Intake and Output Vital Signs (last 24 hours): Temp Pulse Resp BP Pulse Ox 99.6 F 78 18 115/70 100 07/27/16 16:42 07/27/16 16:42 07/27/16 16:42 07/27/16 16:42 07/27/16 16:42 Intake and Output: 07/27/16 07/28/16 18:59 06:59 Intake Total 350 Balance 350 - Medications Medications: Current Medications Alprazolam (Xanax) 0.25 mg PO HS [facility] Stop: 07/31/16 22:01 Last Admin: 07/26/16 22:11 Dose: 0.25 mg Clonidine HCl (Catapres Tts1 0.1 Mg/24 Hr) 1 patch TD Q7D@1000 [facility] Last Admin: 07/24/16 16:57 Dose: 1 patch Famotidine (Pepcid) 20 mg PO DAILY [facility] Last Admin: 07/27/16 09:57 Dose: 20 mg Piperacillin Sod/Tazobactam Sod (Zosyn 2.25 Gm Iv Premix) 50 mls @ 100 mls/hr IVPB Q12H [facility] Last Admin: 07/27/16 13:15 Dose: 100 mls/hr Lamotrigine (Lamictal) 25 mg PO BID [facility] Last Admin: 07/27/16 17:36 Dose: 25 mg Losartan Potassium (Cozaar) 25 mg PO DAILY [facility] Oxycodone/Acetaminophen (Percocet 5/325 Mg Tab) 1 tab PO Q4H PRN PRN Reason: Pain, moderate (4-7) Stop: 07/29/16 23:12 Last Admin: 07/27/16 18:46 Dose: 1 tab Vitamin B Complex/Vit C/Folic Acid (Nephro-Emerson) 1 tab PO DAILY [facility] Last Admin: 07/27/16 09:55 Dose: 1 tab - Labs Labs: 07/27/16 11:09 07/27/16 11:09 - Head Exam Additional comments: On examination: HEENT PERRLA, neck supple No thyromegaly was noted and no cervical adenopathy noted Chest bilateral good air entry, no wheezing or rales noted CVS regular heart sound, no murmur Abdomen soft and no organomegaly bilateral 1+ 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 Likely metabolic. Improving. Awaiting MRI report and EEG. Out of bed to chair. Physical therapy Status: Acute (2) UTI (urinary tract infection) Assessment & Plan: urinary tract infection, on Zosyn, repeat UA and urine culture. Diarrhea is better. Status: Acute (3) ESRD (end stage renal disease) Status: Acute
[2016-07-28] MEDS: Piperacill/Tazo 2.25gm in Dex 50 ML IVPB SCH ×2 (01:02→14:10)
[2016-07-28] MEDS: Oxycodone/Acetaminophen 5/325 mg Tab PO PRN ×4 (06:19→21:07)
[2016-07-28] MEDS: Multivitamin Vitamin B Complex (Nephro-Vite) Tab PO SCH (08:59)
[2016-07-28 11:27] LABS: POTASSIUM 3.1 mmol/L (3.6-5.2)
[2016-07-28 11:31] LABS: CALCIUM 8.9 mg/dl (8.6-10.4); MAGNESIUM 2.3 mg/dL (1.6-2.3)
--- NOTE | 2016-07-28 12:19 | VASCLAB ---
PROCEDURE: HISTORY: stenosis COMPARISON: None available. TECHNIQUE: Grayscale and duplex Doppler evaluation of the cervical carotid and vertebral arteries were performed. The common carotid, carotid bifurcations and cervical Internal Carotid Artery (ICA) and proximal External Carotid Artery (ECA) were evaluated. The vertebral arteries were evaluated for gross patency and flow direction. Report prepared by Barbara Ortiz, ARETHA, S FINDINGS: RIGHT CAROTID ARTERIES: 1. Common Carotid Artery: No significant focal plaque formation of the right common carotid artery. Maximum Peak Systolic velocity: 86 cm/sec: End-diastolic velocity 14 cm/sec. 2. Carotid Bifurcation: plaque formation. Maximum Peak Systolic velocity: 65 cm/sec: End-diastolic velocity 16 cm/sec. 3. Internal Carotid Artery: Plaque description: 3.1. Proximal Segment: Peak systolic velocity 52 cm/sec: End-diastolic velocity 11 cm/sec - % stenosis 0-15% 3.2. Middle Segment: Peak systolic velocity 52 cm/sec: End-diastolic velocity 16 cm/sec - % stenosis 0-15% 3.3. Distal Segment: Peak systolic velocity 87 cm/sec: End-diastolic velocity 23 cm/sec - % stenosis 0-15% 4. External Carotid Artery: No significant focal plaque formation. Peak systolic velocity 76 cm/sec 5. ICA/CCA Ratio: 1.4 LEFT CAROTID ARTERIES: 1. Common Carotid Artery: No significant focal plaque formation of the left common carotid artery. Maximum Peak Systolic velocity: 66 cm/sec: End-diastolic velocity 10 cm/sec. 2. Carotid Bifurcation: plaque formation. Maximum Peak Systolic velocity: 47 cm/sec: End-diastolic velocity 9 cm/sec. 3. Internal Carotid Artery: Plaque description: 3.1. Proximal Segment: Peak systolic velocity 43 cm/sec: End-diastolic velocity 9 cm/sec - % stenosis 0-15% 3.2. Middle Segment: Peak systolic velocity 54 cm/sec: End-diastolic velocity 10 cm/sec - % stenosis 0-15% 3.3. Distal Segment: Peak systolic velocity 110 cm/sec: End-diastolic velocity 18 cm/sec - % stenosis 0-15% 4. External Carotid Artery: No significant focal plaque formation. Peak systolic velocity 80 cm/sec 5. ICA/CCA Ratio: 1.5 VERTEBRAL ARTERIES: 1. Right Vertebral Artery: The right vertebral artery flow direction is antegrade. 2. Left Vertebral Artery: The left vertebral artery flow direction is antegrade. OTHER FINDINGS: 1. Right Brachial Blood pressure: 120 mmHg. 2. Left Brachial Blood pressure: 120 mmHg. IMPRESSION: RIGHT: Duplex scan does not suggest hemodynamically significant stenosis of the right extracranial carotid arteries. LEFT: Duplex scan does not suggest hemodynamically significant stenosis of the left extracranial carotid arteries.
--- NOTE | 2016-07-28 14:04 | CP.PCM.PN ---
Subjective - Date & Time of Evaluation Date of Evaluation: 07/28/16 Time of Evaluation: 14:02 - Subjective Subjective: Feels much better; much more alert Will agree for HD in AM BP sl elevated- will monitor diarrhea better- c.diff negative No new complaints Objective - Vital Signs/Intake and Output Vital Signs (last 24 hours): Temp Pulse Resp BP Pulse Ox 98.3 F 66 20 138/75 98 07/28/16 08:09 07/28/16 12:31 07/28/16 08:09 07/28/16 08:09 07/28/16 12:31 Intake and Output: 07/28/16 07/28/16 06:59 18:59 Intake Total 300 Balance 300 - Medications Medications: Current Medications Alprazolam (Xanax) 0.25 mg PO [facility] Stop: 07/31/16 22:01 Last Admin: 07/27/16 21:58 Dose: 0.25 mg Clonidine HCl (Catapres Tts1 0.1 Mg/24 Hr) 1 patch TD Q7D@1000 [facility] Last Admin: 07/24/16 16:57 Dose: 1 patch Famotidine (Pepcid) 20 mg PO DAILY [facility] Last Admin: 07/28/16 08:59 Dose: 20 mg Piperacillin Sod/Tazobactam Sod (Zosyn 2.25 Gm Iv Premix) 50 mls @ 100 mls/hr IVPB Q12H [facility] Last Admin: 07/28/16 01:02 Dose: 100 mls/hr Lamotrigine (Lamictal) 25 mg PO BID [facility] Last Admin: 07/28/16 08:59 Dose: 25 mg Losartan Potassium (Cozaar) 25 mg PO DAILY [facility] Last Admin: 07/28/16 09:01 Dose: 25 mg Oxycodone/Acetaminophen (Percocet 5/325 Mg Tab) 1 tab PO Q4H PRN PRN Reason: Pain, moderate (4-7) Stop: 07/29/16 23:12 Last Admin: 07/28/16 10:49 Dose: 1 tab Vitamin B Complex/Vit C/Folic Acid (Nephro-Emerson) 1 tab PO DAILY [facility] Last Admin: 07/28/16 08:59 Dose: 1 tab - Labs Labs: 07/27/16 11:09 07/28/16 11:13 - Constitutional Appears: No Acute Distress, Chronically Ill - Head Exam Head Exam: ATRAUMATIC, NORMAL INSPECTION - Eye Exam Eye Exam: EOMI, Normal appearance - Neck Exam Neck Exam: Normal Inspection. absent: Tenderness - Respiratory Exam Respiratory Exam: Clear to Ausculation Bilateral, NORMAL BREATHING PATTERN - Cardiovascular Exam Cardiovascular Exam: REGULAR RHYTHM, +S1 - GI/Abdominal Exam GI & Abdominal Exam: Soft. absent: Tenderness - Extremities Exam Extremities Exam: Normal Inspection. absent: Tenderness - Neurological Exam Neurological Exam: Alert, CN II-XII Intact - Skin Skin Exam: Dry, Warm Assessment and Plan (1) Altered mental status Status: Acute (2) Dependency on pain medication Status: Acute (3) ESRD (end stage renal disease) on dialysis Status: Acute (4) Nephrotic range proteinuria Status: Acute - Assessment and Plan (Free Text) Plan: Monitor BP Rx UTI Schedule dialysis in AM
[2016-07-28 14:50] LABS: RBC URINE 1 /hpf (0-3); URINE BILIRUBIN NEGATIVE (NEGATIVE); URINE BLOOD NEGATIVE (NEGATIVE); URINE COLOR Yellow (YELLOW); URINE GLUCOSE (UA) NORMAL (Normal); URINE KETONE NEGATIVE (NEGATIVE); URINE LEUKOCYTE ESTERASE 2+ Leu/uL (Negative); URINE UROBILINOGEN NORMAL mg/dL (0.2-1.0); WBC URINE 8 /hpf (0-5)
[2016-07-28 14:52] LABS: URINE PROTEIN 1+ mg/dL (NEGATIVE)
[2016-07-29 00:25] VITALS: RESP 20; TEMP 98.6; O2SAT 95
[2016-07-29] MEDS: Piperacill/Tazo 2.25gm in Dex 50 ML IVPB SCH ×2 (02:27→14:10)
[2016-07-29] MEDS: Oxycodone/Acetaminophen 5/325 mg Tab PO PRN ×2 (02:31→06:35)
--- NOTE | 2016-07-29 08:40 | PN ---
DATE: 07/29/2016 NEUROLOGICAL PROBLEM: Change in mental status, possible encephalopathy. PHYSICAL EXAMINATION: VITAL SIGNS: Blood pressure 116/70, mean arterial pressure of 83, respiratory rate is 16, temperatur e 98.6. NEUROLOGIC: The patient is more awake, alert, communicable. Follows commands. Speech is dysphasia secondary to her old stroke. Examination shows mild hyperreflexia of the left upper extremity, right side 1+. The rest of the exa minations are unchanged to compare with the previous examination. 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 FURTHER WORKUP: EEG is still pending. Otherwise, the patient is neurologically stable. Continue the present management. Conner Orantes MD cc: [id number] TT: 07/29/2016 08:39:28 Confirmation # [id number] Dictation # [id number] tn
[2016-07-29] MEDS: Multivitamin Vitamin B Complex (Nephro-Vite) Tab PO SCH (09:21)
[2016-07-29 09:23] VITALS: BP 142/62; PULSE 77
--- NOTE | 2016-07-29 11:02 | CP.PCM.PN ---
Subjective - Date & Time of Evaluation Date of Evaluation: 07/29/16 Time of Evaluation: 10:58 - Subjective Subjective: Feels much better. Eating well, no dyspnea, CPs, N, V, diarhhea gone now Refusing dialysis today- can be done in AM- either in hospital or as outpatient Labs reviewed- patient refused K supplements Objective - Vital Signs/Intake and Output Vital Signs (last 24 hours): Temp Pulse Resp BP Pulse Ox 98.6 F 77 20 142/62 95 07/29/16 09:00 07/29/16 09:00 07/29/16 09:00 07/29/16 09:00 07/29/16 09:00 Intake and Output: 07/29/16 07/29/16 06:59 18:59 Intake Total 490 Balance 490 - Medications Medications: Current Medications Alprazolam (Xanax) 0.25 mg PO [facility] Stop: 07/31/16 22:01 Last Admin: 07/28/16 21:07 Dose: 0.25 mg Clonidine HCl (Catapres Tts1 0.1 Mg/24 Hr) 1 patch TD Q7D@1000 [facility] Last Admin: 07/24/16 16:57 Dose: 1 patch Famotidine (Pepcid) 20 mg PO DAILY [facility] Last Admin: 07/29/16 09:21 Dose: 20 mg Piperacillin Sod/Tazobactam Sod (Zosyn 2.25 Gm Iv Premix) 50 mls @ 100 mls/hr IVPB Q12H [facility] Last Admin: 07/29/16 02:27 Dose: 100 mls/hr Lamotrigine (Lamictal) 25 mg PO BID [facility] Last Admin: 07/29/16 09:21 Dose: 25 mg Losartan Potassium (Cozaar) 25 mg PO DAILY [facility] Last Admin: 07/29/16 09:21 Dose: 25 mg Oxycodone/Acetaminophen (Percocet 5/325 Mg Tab) 1 tab PO Q4H PRN PRN Reason: Pain, moderate (4-7) Stop: 07/29/16 23:12 Last Admin: 07/29/16 06:35 Dose: 1 tab Vitamin B Complex/Vit C/Folic Acid (Nephro-Emerson) 1 tab PO DAILY [facility] Last Admin: 07/29/16 09:21 Dose: 1 tab - Labs Labs: 07/27/16 11:09 07/28/16 11:13 - Constitutional Appears: No Acute Distress, Chronically Ill - Head Exam Head Exam: ATRAUMATIC, NORMAL INSPECTION - Eye Exam Eye Exam: EOMI, Normal appearance - Neck Exam Neck Exam: Normal Inspection. absent: Tenderness - Respiratory Exam Respiratory Exam: Clear to Ausculation Bilateral, NORMAL BREATHING PATTERN - Cardiovascular Exam Cardiovascular Exam: REGULAR RHYTHM, +S1 - GI/Abdominal Exam GI & Abdominal Exam: Soft. absent: Tenderness - Extremities Exam Extremities Exam: Normal Inspection. absent: Tenderness - Neurological Exam Neurological Exam: Alert, CN II-XII Intact - Skin Skin Exam: Dry, Warm Assessment and Plan (1) Altered mental status Status: Resolved (2) Dependency on pain medication Status: Chronic (3) ESRD (end stage renal disease) on dialysis Status: Acute (4) Nephrotic range proteinuria Status: Acute - Assessment and Plan (Free Text) Plan: Monitor mental status Avoidance of opoids Dialysis in AM Discharge possible by tomorrow
--- NOTE | 2016-09-06 18:52 | DS ---
HISTORY OF PRESENT ILLNESS: A 56-year-old female with multiple medical problems including hypertensi on, noncompliance, a smoker, multiple pain medication usage, a history of CVA, peripheral vascular di sease, nonhealing ulcer in the past in the leg, multiple hospitalizations in the past, end-stage nico l disease, on dialysis. The patient is noncompliant with the dialysis, came to the Emergency Room wi th increasing drowsiness, hallucinations, confusion and poor intake. The patient's family also notic ed that she was having some frequent bowel movements. Upon admission, the patient was in severe alte red mental status, not anything and at that time the patient was also drowsy and sleepy. Accor ding to the patient's family, she started taking more of her home medications including pain medicati ons, which is causing her more symptoms at this time. The patient also did not get to dialysis becau se of the ongoing problems. The patient was hospitalized with altered mental status. During the sta y in the hospital she was admitted to the intensive care unit, closely monitored. Her neurological s tatus was monitored, which slowly improved after dialysis and medications withholding. Clinically, t he patient improved. Meanwhile, patient also developed UTI, received IV antibiotic, clinically stabl e, but the patient was supposed to be receiving IV antibiotic for a few more days. The patient refus ed to stay and she signed against medical advice and she went home. I spoke to the family and himanshu lee to the family regarding the ongoing medical problems and I advised her to start antibiotic as an outpatient and follow up as an outpatient. Yue Valencia MD cc: [id number] TT: 09/06/2016 18:51:02 bib
--- NOTE | 2016-09-07 07:05 | PN ---
DATE: 07/28/2016 SUBJECTIVE: The patient is still complaining of some pain in the lower extremities and abdominal filiberto n, but she wants to go home at this time. She denies any nausea, no vomiting noted, but poor intake. PHYSICAL EXAMINATION: VITAL SIGNS: Reviewed and discussed with the patient CHEST: Good air entry bilaterally. CARDIOVASCULAR: Regular heart sound. ABDOMEN: Nontender abdomen. EXTREMITIES: Edema 1+ bilaterally noted. LABORATORY DATA: Reviewed. ASSESSMENT AND RECOMMENDATIONS: A 56-year-old female with multiple medical problems including end-st age renal disease, on dialysis, chronic pain syndrome associated with abdominal constipation and verona re constipation related problems, also COPD, chronic smoker, chronic pain management usage admitted w ith altered mental status, most likely related to drug overdose. Clinically, stable at this time. C urrently on antibiotic for UTI. We will follow up the patient. Yue Valencia MD cc: [id number] TT: 09/06/2016 18:10:16 Confirmation # [id number] Dictation # [id number] bib
== END 2016-07-29 15:25 | disposition left against medical advice (07) | DRG 917 ==
LOC: C.ER 11:24 → C.9E 18:22 → C.9I 20:36 → C.6T 07-26 10:41
PROVIDERS: ADMIT Internal Medicine; ATTEND Internal Medicine
DX: T40.2X1A Poisoning by other opioids, accidental (unintentional), initial encounter (principal); N18.6 End stage renal disease; I12.0 Hypertensive chronic kidney disease with stage 5 chronic kidney disease or end stage renal disease; N39.0 Urinary tract infection, site not specified; F19.20 Other psychoactive substance dependence, uncomplicated; I10 Essential (primary) hypertension; R41.82 Altered mental status, unspecified; T42.4X1A Poisoning by benzodiazepines, accidental (unintentional), initial encounter; F17.210 Nicotine dependence, cigarettes, uncomplicated; F32.9 Major depressive disorder, single episode, unspecified; I73.9 Peripheral vascular disease, unspecified; Z86.73 Personal history of transient ischemic attack (TIA), and cerebral infarction without residual deficits; Z99.2 Dependence on renal dialysis

== ENCOUNTER 2017-05-02 17:15 | Emergency (ER) | payer MEDICARE, BC, MEDICAID ==
[2017-05-02 17:15] VITALS: BMI 23.8
[2017-05-02 17:27] VITALS: BP 141/80; PULSE 81; RESP 20; TEMP 97.8; O2SAT 100
--- NOTE | 2017-05-02 18:22 | C.PDOC ---
History Of Present Illness Pt had hemodialysis today, but Son states that she did not want to wait after taking out the dialysis needle before leaving. So on the way home her dialysis shunt started bleeding. Time Seen by Provider: 05/02/17 18:12 Chief Complaint (Nursing): Vascular Access Device Problem History Per: Patient, Family (Son) Onset/Duration Of Symptoms: Hrs (2) Current Symptoms Are (Timing): Better Severity: Moderate Context: after dialysis today Location: Left arm Quality: Bleeding Additional History Per: Prior Records Past Medical History Reviewed: Historical Data, Nursing Documentation, Vital Signs Vital Signs: Last Vital Signs Temp 97.8 F 05/02/17 17:23 Pulse 81 05/02/17 17:23 Resp 20 05/02/17 17:23 BP 141/80 05/02/17 17:23 Pulse Ox 100 05/02/17 17:23 - Medical History PMH: Anemia, Anxiety, Arthritis, Asthma, Back Problems, Bronchitis, Cardia Arrhythmia, COPD, CVA, Depression, Deep Vein Thrombosis, Gall Bladder Disease, HTN, Hypercholesterolemia, Peripheral Edema, End Stage Renal Disease, Chronic Kidney Disease, Seizures, TIA Surgical History: Appendectomy, Back Surgery (Repair of herniated disc), Cholecystectomy, Endoscopy - [facility] Procedures AMPUTATION THROUGH FOOT (03/01/13) ANGIOPLASTY OF OTHER NON-CORONARY VESSEL(S) (03/01/13) BONE MARROW BIOPSY (05/08/13) CENTRAL VENOUS CATHETER PLACEMENT WITH GUIDANCE (03/01/13) CLOSED [ENDOSCOPIC] BIOPSY OF LARYNX (06/08/13) CONTINUOUS INVASIVE MECHANICAL VENTILATION =/>96 CONSEC HRS (03/01/13) ENTERAL INFUSION OF CONCENTRATED NUT. SUBSTANCES (07/17/13) ESOPHAGOGASTRODUODENOSCOPY [EGD] W/CLOSED BIOPSY (05/08/13) EXC LES SOFT TISSUE NEC (02/27/14) EXCIS LESION OF MUSCLE (02/27/14) FREE SKIN GRAFT NEC (02/27/14) HEMODIALYSIS (03/01/13) INFUSION OF VASOPRESSOR AGENT (03/01/13) INSERT ENDOTRACHEAL TUBE (03/01/13) INSERT INFUSION DEV IN R INT JUGULAR VEIN, PERC (01/29/15) INSERT RECTAL TUBE (03/01/13) INTRODUCE OF OTH THROMBOLYTIC INTO PERIPH ART, PERC APPROACH (11/08/15) LOWER LIMB ARTERY INCIS (03/01/13) NAIL REMOVAL (09/06/14) NONEXCIS DEBRID OF WOUND, INFECT, OR BURN (02/27/14) OTHER ENDOSCOPY OF SM INTEST (09/04/13) OTHER MYECTOMY (02/27/14) PACKED CELL TRANSFUSION (06/08/13) PARENTERAL INFUSION OF CONCENTRATED NUT. SUBSTANCE (03/01/13) PERCUTANEOUS [ENDOSCOPIC] GASTROSTOMY [PEG] (03/01/13) PERFORMANCE OF URINARY FILTRATION, MULTIPLE (01/29/15) PERFORMANCE OF URINARY FILTRATION, SINGLE (04/02/16) PLAIN RADIOGRAPHY OF DIALYSIS SHUNT USING L OSM CONTRAST (11/08/15) PROCEDURE ON SINGLE VESSEL (03/01/13) REMOV GASTROSTOMY TUBE (09/04/13) REMOV THOR THER DEV NEC (03/01/13) TETANUS TOXOID ADMINIST (09/06/14) ULTRASONOGRAPHY OF RIGHT JUGULAR VEINS, GUIDANCE (01/29/15) ULTRASOUND THERAPY OF PERIPHERAL VESSELS, SINGLE (11/08/15) VENOUS CATHETERIZATION FOR RENAL DIALYSIS (03/01/13) VENOUS CATHETERIZATION NEC (03/01/13) Family History: States: Unknown Family Hx - Social History Hx Tobacco Use: Yes Hx Alcohol Use: No Hx Substance Use: No - Immunization History Hx Tetanus Toxoid Vaccination: Yes Hx Influenza Vaccination: Yes Hx Pneumococcal Vaccination: Yes Review Of Systems Except As Marked, All Systems Reviewed And Found Negative. Constitutional: Negative for: Fever, Weakness Cardiovascular: Negative for: Chest Pain, Light Headedness Respiratory: Negative for: Shortness of Breath Gastrointestinal: Negative for: Vomiting Neurological: Negative for: Dizziness Physical Exam - Physical Exam Appears: No Acute Distress, Chronically Ill Skin: Warm, Dry Head: Atraumatic Eye(s): bilateral: PERRL, EOMI Neck: Normal ROM, Supple Cardiovascular: Rhythm Regular Respiratory: Normal Breath Sounds, No Accessory Muscle Use Gastrointestinal/Abdominal: Soft, No Tenderness Back: No CVA Tenderness Extremity: Normal ROM, Other (dialysis fistula in left arm with blood soaked dressing, but no active bleeding. Good thrill.) Pulses: Left Radial: Normal Neurological/Psych: Oriented x3, Normal Motor, Normal Sensation ED Course And Treatment O2 Sat by Pulse Oximetry: 100 Pulse Ox Interpretation: Normal Progress Note: Dressing was changed by RN. Reassessment Condition: Improved Disposition Counseled Patient/Family Regarding: Diagnosis, Need For Followup - Disposition Referrals: Yue Valencia MD [Staff Provider] - Disposition: HOME/ ROUTINE Disposition Time: 18:24 Condition: IMPROVED Additional Instructions: Follow up with your doctor. Return to the ER if you develop bleeding again, dizziness, worsening of symptoms or if you have any other concerns. Instructions: Hemodialysis (ED) Forms: Gen Discharge Inst Ukrainian Print Language: ICELANDIC - Clinical Impression Clinical Impression: Bleeding from dialysis shunt
== END 2017-05-02 18:25 | disposition home or self-care (01) ==
LOC: C.ER 17:15
DX: T82.838A Hemorrhage due to vascular prosthetic devices, implants and grafts, initial encounter (principal); Y84.9 Medical procedure, unspecified as the cause of abnormal reaction of the patient, or of later complication, without mention of misadventure at the time of the procedure